=== PATIENT | female | born 1995 | race African-American/Black ===

== ENCOUNTER 2016-09-25 18:12 | Emergency (ER) | payer OTHER ==
--- NOTE | 2016-09-25 18:14 | PDOC ---
Rapid Medical Evaluation Time Seen by Provider: 09/25/16 18:13 Medical Evaluation: 09/25/16 18:14 20 year old female with no past medical history presenting with condom retained per vagina since last night. V/s unremarkable. -Urine -To FT for further evaluation
[2016-09-25 18:17] VITALS: BP 130/83; PULSE 76; TEMP 98; BMI 27.1
--- NOTE | 2016-09-25 18:57 | PDOC ---
History of Present Illness - General Chief Complaint: Foreign Body (FB) Stated Complaint: PAIN Time Seen by Provider: 09/25/16 18:13 History Source: Patient - History of Present Illness Timing/Duration: reports: constant, other (yesterday) Past History - Past Medical History Allergies/Adverse Reactions: Allergies Allergy/AdvReac Type Severity Reaction Status Date / Time No Known Allergies Allergy Verified 09/25/16 18:17 - Psycho/Social/Smoking Cessation Hx Suicidal Ideation: No Smoking History: Never smoked Information on smoking cessation initiated: No Review of Systems - Review of Systems Constitutional: No: Chills, Fever ABD/GI: No: Abdominal cramping : Yes: Other (no foul vaginal odor). No: Dysuria, Discharge *Physical Exam - Vital Signs Last Vital Signs Temp Pulse Resp BP Pulse Ox 98 F 76 18 130/83 100 09/25/16 18:13 09/25/16 18:13 09/25/16 18:13 09/25/16 18:13 09/25/16 18:13 - Physical Exam General Appearance: Yes: Appropriately Dressed. No: Apparent Distress HEENT: positive: Normal Voice Neck: positive: Supple Respiratory/Chest: negative: Respiratory Distress Female Pelvic Exam: positive: other (intact condom seen in vaginal vault and removed w/ alligator forceps, no discharge, no foul odor) Gastrointestinal/Abdominal: positive: Soft. negative: Tender Integumentary: positive: Dry, Warm Neurologic: positive: Fully Oriented, Alert, Normal Mood/Affect Medical Decision Making - Medical Decision Making 09/25/16 18:50 20-year-old female, no significant history, here with retained foreign body to vagina. Patient states after sexual intercourse yesterday, condom got stuck in vaginal vault. Has attempted to remove it with no success. Denies any medical complaints otherwise at this time. Pt well piter and stable. Intact condom removed w/ alligator forceps. Urine preg sent from triage neg. Pt discharged in stable condition. 09/25/16 18:57 *DC/Admit/Observation/Transfer Diagnosis at time of Disposition: Vaginal foreign body Qualifiers: Encounter type: initial encounter Qualified Code(s): T19.2XXA - Foreign body in vulva and vagina, initial encounter - Discharge Dispostion Disposition: HOME Condition at time of disposition: Good - Patient Instructions Additional Instructions: Return for worsening of symptoms
== END 2016-09-25 19:53 | disposition home or self-care (01) ==
LOC: JERFT 18:12
DX: T19.2XXA Foreign body in vulva and vagina, initial encounter (principal); X58.XXXA Exposure to other specified factors, initial encounter; Y93.89 Activity, other specified; Y92.89 Other specified places as the place of occurrence of the external cause
CPT/HCPCS: 84703; 99281-25

== ENCOUNTER 2016-11-24 09:07 | Emergency (ER) | payer OTHER ==
[2016-11-24 09:22] VITALS: TEMP 98.6; BMI 27.2
--- NOTE | 2016-11-24 09:37 | PDOC ---
History of Present Illness - General Chief Complaint: Pain Stated Complaint: ABD PAIN, VOMITING Time Seen by Provider: 11/24/16 09:36 History Source: Patient Exam Limitations: No Limitations - History of Present Illness Initial Comments: CHIEF COMPLAINT: 20 y/o afebrile female with no significant PMH c/o 1 episode of vomiting and abdominal pain this morning. HISTORY OF PRESENT ILLNESS: The patient states she woke up around 5am and vomited 1 time. She states after that she developed abdominal pain in her right pelvic region but that has gone away. Her mom was concerned with the location of the pain and suggested she come to the ER. She admits she has had pain with urination for 2 days. She denies f/c, nausea, diarrhea, constipation , CP, SOB, back pain, hematuria, dysuria. She states she no longer has any abdominal pain and is no longer nauseous. Her LMP was 2 weeks ago. Vital signs on arrival are within normal limits. REVIEW OF SYSTEMS: GENERAL/CONSTITUTIONAL: No fever/chills. No weakness. No weight change. HEAD, EYES, EARS, NOSE AND THROAT: No change in vision. No ear pain or discharge. No sore throat. CARDIOVASCULAR: No chest pain or shortness of breath. RESPIRATORY: No cough, wheezing, or hemoptysis. GASTROINTESTINAL: +abdominal/pelvic pain - resolved. +vomiting - resolved. No nausea, diarrhea, constipation. GENITOURINARY: +dysuria. No frequency or hematuria. MUSCULOSKELETAL: No joint or muscle swelling or pain. No neck or back pain. SKIN: No rash or easy bruising. NEUROLOGIC: No headache, vertigo, loss of consciousness, or loss of sensation. PHYSICAL EXAM: GENERAL: The patient is awake, alert, and fully oriented, in no acute distress. She is very well appearing, ambulatory, in NAD or obvious discomfort. HEAD: Normal with no signs of trauma. ENT: Pupils equal, round and reactive to light, extraocular movements intact, sclera anicteric, conjunctiva clear. Neck supple. LUNGS: Clear to auscultation bilaterally. Normal excursion. No respiratory distress or use of accessory muscles. CV: RRR, S1/S2, no MRG. Cap refill < 2 sec. ABDOMEN: Soft, non-distended, with suprapubic TTP, no hepatomegaly or splenomegaly, no masses. No Mcburney's point TTP. No pelvic pain. No rebound , guarding or rigidity. The patient can jump up and down in the ER without abdominal pain. BACK: No CVA TTP or flank pain b/l. EXTREMITIES: Normal range of motion, no edema. NEUROLOGICAL: Normal speech, normal gait. CN II-XII grossly intact. PSYCH: Normal mood, normal affect. SKIN: Warm, dry, normal turgor, no rashes or lesions noted. Past History - Past Medical History Allergies/Adverse Reactions: Allergies Allergy/AdvReac Type Severity Reaction Status Date / Time No Known Allergies Allergy Verified 11/24/16 09:20 Home Medications: Ambulatory Orders Cephalexin Monohydrate [Keflex -] 500 mg PO BID #14 capsule 11/24/16 - Psycho/Social/Smoking Cessation Hx Anxiety: No Suicidal Ideation: No Smoking History: Never smoked Have you smoked in the past 12 months: No Information on smoking cessation initiated: No Hx Alcohol Use: No Drug/Substance Use Hx: No Substance Use Type: None *Physical Exam - Vital Signs Last Vital Signs Temp Pulse Resp BP Pulse Ox 98.6 F 88 18 121/54 100 11/24/16 09:20 11/24/16 09:20 11/24/16 09:20 11/24/16 09:20 11/24/16 09:20 ED Treatment Course - LABORATORY CBC & Chemistry Diagram: 11/24/16 09:47 11/24/16 09:47 Medical Decision Making - Medical Decision Making A/P: 20 y/o afebrile female with 1 episode of vomiting and right lower abdominal pain this morning, both of which have resolved. Do not suspect appendicitis given presentation of symptoms and negative physical exam. Will r/ o UTI and ovarian cyst. 1. Labs 2. UTI/hcg 3. Ultrasound Ultrasound IMPRESSION: bilateral ovarian cysts. Left is most likely hemorrhagic. Laboratory Tests 11/24/16 09:47 Urine Protein 2+ H Urine Glucose (UA) Negative Urine Ketones Negative Urine Blood 1+ H Urine Nitrite Negative Urine Bilirubin Negative Urine Urobilinogen Negative Ur Leukocyte Esterase 3+ H Urine RBC 44 Urine WBC 376 Ur Epithelial Cells Rare Urine Mucus Rare Urine HCG, Qual Negative The patient is positive for a UTI and left ovarian cyst. Gave her results and diagnosis. She states she is feeling well with no pain or nausea. Will discharge to home with rx for keflex for UTI and instructed her to take Motrin every 6 hours for pain. Instructed her to drink at least 64oz of water daily, follow up with her PCP within 1 week and return to the ER with any worsening or concerning symptoms. The patient verbalizes understanding of all instructions, has no further questions and is awaiting discharge. *DC/Admit/Observation/Transfer Diagnosis at time of Disposition: Ovarian cyst UTI (urinary tract infection) Qualifiers: Urinary tract infection type: acute cystitis Hematuria presence: with hematuria Qualified Code(s): N30.01 - Acute cystitis with hematuria - Discharge Dispostion Disposition: HOME Condition at time of disposition: Good - Prescriptions Prescriptions: Cephalexin Monohydrate [Keflex -] 500 mg PO BID #14 capsule - Referrals Referrals: Mayur Marmolejo MD [Primary Care Provider] - 3 days David Randall MD [Staff Physician] - - Patient Instructions Printed Discharge Instructions: DI for Ovarian Cyst, DI for Urinary Tract Infection (UTI) Additional Instructions: Discharge Instructions: -A prescription was called to your pharmacy for antibiotics to treat your Urinary tract infection; please take for entire 7 days -Drink at least 64oz of water daily -Take 600mg of over the counter motrin with food every 6 hours for pain -Follow up with Dr. Marmolejo and Dr. Randall within 1 week -Return to the ER with any worsening or concerning symptoms
--- NOTE | 2016-11-24 09:37 | PDOC ---
History of Present Illness - General Chief Complaint: Pain Stated Complaint: ABD PAIN, VOMITING Time Seen by Provider: 11/24/16 09:36 Past History - Past Medical History Allergies/Adverse Reactions: Allergies Allergy/AdvReac Type Severity Reaction Status Date / Time No Known Allergies Allergy Verified 11/24/16 09:20 Home Medications: Ambulatory Orders Cephalexin Monohydrate [Keflex -] 500 mg PO BID #14 capsule 11/24/16 - Psycho/Social/Smoking Cessation Hx Anxiety: No Suicidal Ideation: No Smoking History: Never smoked Have you smoked in the past 12 months: No Information on smoking cessation initiated: No Hx Alcohol Use: No Drug/Substance Use Hx: No Substance Use Type: None *Physical Exam - Vital Signs Last Vital Signs Temp Pulse Resp BP Pulse Ox 98.6 F 88 18 121/54 100 11/24/16 09:20 11/24/16 09:20 11/24/16 09:20 11/24/16 09:20 11/24/16 09:20 ED Treatment Course - LABORATORY CBC & Chemistry Diagram: 11/24/16 09:47 11/24/16 09:47 *DC/Admit/Observation/Transfer Diagnosis at time of Disposition: Ovarian cyst UTI (urinary tract infection) Qualifiers: Urinary tract infection type: acute cystitis Hematuria presence: with hematuria Qualified Code(s): N30.01 - Acute cystitis with hematuria - Discharge Dispostion Disposition: HOME Condition at time of disposition: Good - Prescriptions Prescriptions: Cephalexin Monohydrate [Keflex -] 500 mg PO BID #14 capsule - Referrals Referrals: David Randall MD [Staff Physician] - Mayur Marmolejo MD [Primary Care Provider] - 3 days - Patient Instructions Printed Discharge Instructions: DI for Urinary Tract Infection (UTI), DI for Ovarian Cyst Additional Instructions: Discharge Instructions: -A prescription was called to your pharmacy for antibiotics to treat your Urinary tract infection; please take for entire 7 days -Drink at least 64oz of water daily -Take 600mg of over the counter motrin with food every 6 hours for pain -Follow up with Dr. Marmolejo and Dr. Randall within 1 week -Return to the ER with any worsening or concerning symptoms
[2016-11-24 10:09] LABS: BASOPHIL 0.2 % (0-2.0); EOSINOPHIL 0.1 % (0-4.5); MCH 30.2 pg (25.7-33.7); MCHC 33.2 g/dl (32.0-36.0); MEAN PLT VOLUME 8.5 fl (7.5-11.1); NEUTROPHILS 89.5 % (42.8-82.8); PLATELET COUNT 248 K/MM3 (134-434); RDW 12.8 % (11.6-15.6)
[2016-11-24 10:32] LABS: URINE APPEARANCE SLCLOUDY; URINE BILIRUBIN NEGATIVE (NEGATIVE); URINE COLOR LTYELLOW; URINE GLUCOSE (UA) NEGATIVE (NEGATIVE); URINE KETONE NEGATIVE (NEGATIVE); URINE NITRITE NEGATIVE (NEGATIVE); URINE UROBILINOGEN NEGATIVE E.U./dl (0.2-1.0)
[2016-11-24 10:33] LABS: ALBUMIN 3.8 g/dl (3.4-5.0); ANION GAP 11 (8-16); CO2 24 mmol/L (21-32); GLUCOSE,RANDOM 95 mg/dL (74-106); SGOT/AST 29 U/L (15-37); SGPT/ALT 50 U/L (12-78)
[2016-11-24 10:35] LABS: ALK PHOS 51 U/L (45-117); BILIRUBIN,TOTAL 0.4 mg/dL (0.2-1.0); TOT PROT 7.7 g/dl (6.4-8.2)
[2016-11-24 11:14] LABS: URINE BLOOD 1+ (NEGATIVE); URINE LEUK ESTERASE 3+ (NEGATIVE); URINE PROTEIN 2+ (NEGATIVE)
[2016-11-24 11:17] LABS: URINE MUCUS RARE; URINE RBC 44 /hpf (0-3); URINE WBC 376 /hpf (3-5)
[2016-11-24 12:02] VITALS: BP 121/65; PULSE 78
== END 2016-11-24 12:03 | disposition home or self-care (01) ==
LOC: JER 09:07
DX: N83.201 Unspecified ovarian cyst, right side (principal); N83.202 Unspecified ovarian cyst, left side; N30.01 Acute cystitis with hematuria
CPT/HCPCS: 36415; 76830-TC; 80053; 81003; 81015; 84703; 85025; 87086; 99284-25

== ENCOUNTER 2017-11-27 19:21 | Emergency (ER) | payer OTHER ==
[2017-11-27 19:27] VITALS: BP 126/77; PULSE 88; TEMP 99; BMI 26.9
--- NOTE | 2017-11-27 19:28 | PDOC ---
Rapid Medical Evaluation Time Seen by Provider: 11/27/17 19:26 Medical Evaluation: Allergies Allergy/AdvReac Type Severity Reaction Status Date / Time No Known Allergies Allergy Verified 11/24/16 09:20 11/27/17 19:26 I have performed a brief-in person evaluation of this patient. The patient presents with a chief complaint of: "I think I have a urinary infection" Denies burn upon urination but +frequency/hesitancy " I want STD test" Pertinent physical exam findings: Abd soft, NT, ND I have ordered the following:upreg, UA, U std The patient will proceed to the ED for further evaluation. Discharge Disposition - Referrals Referrals: Mayur Marmolejo MD [Primary Care Provider] - - Patient Instructions - Post Discharge Activity
[2017-11-27 20:19] LABS: HCG,QUALITATIVE URINE NEGATIVE
[2017-11-27 20:22] LABS: URINE APPEARANCE SLCLOUDY; URINE BILIRUBIN NEGATIVE (<2.0 mg/dL); URINE BLOOD NEGATIVE (NEGATIVE); URINE COLOR YELLOW; URINE GLUCOSE (UA) NEGATIVE (NEGATIVE); URINE KETONE NEGATIVE (NEGATIVE); URINE LEUK ESTERASE 3+ (NEGATIVE); URINE NITRITE NEGATIVE (NEGATIVE); URINE PROTEIN NEGATIVE (NEGATIVE); URINE UROBILINOGEN NEGATIVE mg/dL (0.2-1.0)
[2017-11-27 20:31] LABS: EPI CELLS MODERATE /HPF (FEW); URINE MUCUS RARE
[2017-11-27] MEDS ORDERED: AZITHROMYCIN 1 GM PACKET PO ONE (20:33)
--- NOTE | 2017-11-27 20:33 | PDOC ---
History of Present Illness - General Chief Complaint: Urinary Problem Stated Complaint: UTI Time Seen by Provider: 11/27/17 19:26 History Source: Patient Exam Limitations: No Limitations - History of Present Illness Travel History: No Initial Comments: 11/27/17 20:27 This is a 21-year-old woman without significant past medical history who presents emergency department had a requesting STD testing as her partners experiencing dysuria, hesitancy, urinary frequency. Patient states she's been having unprotected oral and vaginal sex with one partner for the past 3 months and has not been expressing any symptoms. Patient declines HIV testing at this time. Past History - Past Medical History Allergies/Adverse Reactions: Allergies Allergy/AdvReac Type Severity Reaction Status Date / Time No Known Allergies Allergy Verified 11/27/17 19:28 Home Medications: Ambulatory Orders NK [No Known Home Medication] 11/27/17 - Suicide/Smoking/Psychosocial Hx Smoking History: Current some day smoker Have you smoked in the past 12 months: No Number of Cigarettes Smoked Daily: 4 Information on smoking cessation initiated: No Hx Alcohol Use: No (social) Drug/Substance Use Hx: No Substance Use Type: None Review of Systems - Review of Systems Able to Perform ROS?: Yes Is the patient limited Armenian proficient: No All Other Systems: Reviewed and Negative *Physical Exam - Vital Signs Last Vital Signs Temp Pulse Resp BP Pulse Ox 99.0 F 88 20 126/77 99 11/27/17 19:24 11/27/17 19:24 11/27/17 19:24 11/27/17 19:24 11/27/17 19:24 - Physical Exam General Appearance: Yes: Appropriately Dressed. No: Apparent Distress HEENT: positive: Normal ENT Inspection Neck: positive: Trachea midline Respiratory/Chest: positive: Lungs Clear, Normal Breath Sounds. negative: Respiratory Distress, Accessory Muscle Use Cardiovascular: positive: Regular Rhythm, Regular Rate. negative: Murmur Gastrointestinal/Abdominal: positive: Normal Bowel Sounds, Soft. negative: Tender Musculoskeletal: positive: Normal Inspection. negative: CVA Tenderness Extremity: positive: Normal Inspection Integumentary: positive: Normal Color, Dry, Warm Neurologic: positive: Alert, Normal Response ED Treatment Course - ADDITIONAL ORDERS Additional order review: Laboratory Results 11/27/17 19:43 Urine Color Yellow Urine Appearance Slcloudy Urine pH 5.0 D Ur Specific [place] 1.029 Urine Protein Negative Urine Glucose (UA) Negative Urine Ketones Negative Urine Blood Negative Urine Nitrite Negative Urine Bilirubin Negative Urine Urobilinogen Negative Ur Leukocyte Esterase 3+ H Urine HCG, Qual Negative Medical Decision Making - Medical Decision Making 11/27/17 20:29 A/P: 21-year-old female requesting STD testing status post possible exposure Normal exam UA, urine culture, urine GC, urine Ceftriaxone, Zithromax *DC/Admit/Observation/Transfer Diagnosis at time of Disposition: Concern about STD in female without diagnosis - Discharge Dispostion Disposition: HOME Condition at time of disposition: Stable Decision to Admit order: No - Referrals Referrals: Mayur Marmolejo MD [Primary Care Provider] - - Patient Instructions Additional Instructions: You been treated today with azithromycin 1 g by mouth for treatment of presumed chlamydia You have been treated with Rocephin 250 mg injection for treatment of presumned gonorrhea The syphilis test, gonorrhea and chlamydia testing will not be completed for the next few days. You may call and leave message for return phone call with lab results. Be sure to be clear with your name, birthdate, and phone number Always use condoms with the partners Followup with ENTERTAINMENT USHER or PMD in one week for reevaluation and retesting. - Post Discharge Activity
[2017-11-27] MEDS ORDERED: AZITHROMYCIN 500 MG TABLET ONE (20:39)
== END 2017-11-27 20:53 | disposition home or self-care (01) ==
LOC: JERFT 19:21
DX: Z11.3 Encounter for screening for infections with a predominantly sexual mode of transmission (principal)
CPT/HCPCS: 36415; 81003; 81015; 84703; 87086; 87491; 87591; 99281-25

== ENCOUNTER 2018-08-18 17:52 | Emergency (ER) | payer OTHER ==
[2018-08-18] MEDS ORDERED: AZITHROMYCIN 250 MG TABLET PO ONE (18:00)
--- NOTE | 2018-08-18 18:00 | PDOC ---
Rapid Medical Evaluation Time Seen by Provider: 08/18/18 17:57 Medical Evaluation: Allergies Allergy/AdvReac Type Severity Reaction Status Date / Time No Known Allergies Allergy Verified 02/24/18 22:05 08/18/18 17:58 I have performed a brief in-person evaluation of this patient. The patient presents with a chief complaint of:STD check Pertinent physical exam findings:NAD I have ordered the following:GC, UA, U PReg, rocephin, zithromax The patient will proceed to the ED for further evaluation. Discharge Disposition - Diagnosis STD exposure - Referrals - Patient Instructions - Post Discharge Activity
[2018-08-18 18:03] VITALS: BP 113/71; PULSE 85; TEMP 98.1; BMI 25.8
[2018-08-18 18:57] LABS: HCG,QUALITATIVE URINE Negative
[2018-08-18 19:02] LABS: URINE APPEARANCE CLEAR; URINE BILIRUBIN NEGATIVE (<2.0 mg/dL); URINE COLOR STRAW; URINE GLUCOSE (UA) NEGATIVE (NEGATIVE); URINE KETONE NEGATIVE (NEGATIVE); URINE LEUK ESTERASE 2+ (NEGATIVE); URINE NITRITE NEGATIVE (NEGATIVE); URINE PROTEIN NEGATIVE (NEGATIVE); URINE UROBILINOGEN NEGATIVE mg/dL (0.2-1.0)
[2018-08-18 19:30] LABS: EPI CELLS RARE /HPF (FEW)
[2018-08-18] MEDS ORDERED: AZITHROMYCIN 250 MG TABLET ONE (20:12)
--- NOTE | 2018-08-18 20:56 | PDOC ---
History of Present Illness - General Chief Complaint: Vaginal Sxs Stated Complaint: pt wants STD testing Time Seen by Provider: 08/18/18 17:57 History Source: Patient - History of Present Illness Initial Comments: 08/18/18 20:57 22 year old female unsure of exposure to gonorrhea here to be treated. as per patient patient current partner was exposed to gonorrhea by his other partner. denies vaginal symptoms, urinary symptomsa, no fever/ chills. Past History - Past Medical History Allergies/Adverse Reactions: Allergies Allergy/AdvReac Type Severity Reaction Status Date / Time No Known Allergies Allergy Verified 08/18/18 18:03 Home Medications: Ambulatory Orders NK [No Known Home Medication] 11/27/17 COPD: No - Suicide/Smoking/Psychosocial Hx Smoking History: Never smoked Have you smoked in the past 12 months: No Number of Cigarettes Smoked Daily: 4 Information on smoking cessation initiated: No Hx Alcohol Use: No Drug/Substance Use Hx: No Substance Use Type: None Review of Systems - Review of Systems Able to Perform ROS?: Yes Is the patient limited Georgian proficient: No Constitutional: No: Symptoms Reported, See HPI, Chills, Diaphoresis, Fever, Loss of Appetite, Malaise, Night Sweats, Weakness, Weight Stable, Unintentional Wgt. Loss, Unexplained wgt Loss, Other HEENTM: No: Symptoms Reported, See HPI, Eye Pain, Blurred Vision, Tearing, Recent change in vision, Double Vision, Cataracts, Ear Pain, Ocular Prothesis, Ear Discharge, Nose Pain, Nose Congestion, Tinnitus, Nose Bleeding, Hearing Loss , Throat Pain, Throat Swelling, Mouth Pain, Dental Problems, Difficulty Swallowing, Mouth Swelling, Other Respiratory: No: Symptoms reported, See HPI, Cough, Orthopnea, Shortness of Breath, SOB with Exertion, SOB at Rest, Stridor, Wheezing, Productive cough, Hemoptysis, Other Cardiac (ROS): No: Symptoms Reported, See HPI, Chest Pain, Edema, Irregular Heart Rate, Lightheadedness, Palpitations, Syncope, Chest Tightness, Other ABD/GI: No: Symptoms Reported, See HPI, Abdominal Distended, Abd. Pain w/ defecation, Blood Streaked Bowels, Constipated, Diarrhea, Difficulty Swallowing , Nausea, Poor Appetite, Poor Fluid Intake, Rectal Bleeding, Vomiting, Indigestion, Abdominal cramping, Tarry Stools, Other *Physical Exam - Vital Signs Last Vital Signs Temp Pulse Resp BP Pulse Ox 98.1 F 85 17 113/71 99 08/18/18 18:02 08/18/18 18:02 08/18/18 18:02 08/18/18 18:02 08/18/18 18:02 - Physical Exam General Appearance: Yes: Appropriately Dressed Moderate Sedation - Procedure Monitoring Vital Signs: Procedure Monitoring Vital Signs Temperature 98.1 F 08/18/18 18:02 Pulse Rate 85 08/18/18 18:02 Respiratory Rate 17 08/18/18 18:02 Blood Pressure 113/71 08/18/18 18:02 O2 Sat by Pulse Oximetry (%) 99 08/18/18 18:02 ED Treatment Course - ADDITIONAL ORDERS Additional order review: Laboratory Results 08/18/18 18:43 Urine Color Straw Urine Appearance Clear Urine pH 8.0 D Ur Specific [place] 1.009 L Urine Protein Negative Urine Glucose (UA) Negative Urine Ketones Negative Urine Blood Negative Urine Nitrite Negative Urine Bilirubin Negative Urine Urobilinogen Negative Ur Leukocyte Esterase 2+ H Urine WBC (Auto) 5 Urine RBC (Auto) None Ur Epithelial Cells Rare Urine HCG, Qual Negative - Medications Given in the ED: ED Medications Discontinued Medications Generic Name Dose Route Start Last Admin Trade Name Felibertoq PRN Reason Stop Dose Admin Azithromycin 1,000 mg 08/18/18 18:00 08/18/18 20:30 Zithromax - PO 08/18/18 18:01 1,000 mg ONCE ONE Administration Ceftriaxone Sodium 250 mg 08/18/18 18:00 08/18/18 20:29 Rocephin - IM 08/18/18 18:01 250 mg ONCE ONE Administration *DC/Admit/Observation/Transfer Diagnosis at time of Disposition: STD exposure - Discharge Dispostion Disposition: HOME - Referrals Referrals: Mayur Marmolejo MD [Primary Care Provider] - - Patient Instructions Printed Discharge Instructions: Facts About Sexually Transmitted Infections Additional Instructions: no sex for 1 week follow up with primary doctor / production control technologist as soon as possible. Additional Instructions: * Please call your personal physician to report your Emergency Department visit and to report your progress, if any. * If there is no improvement in symptoms in 2 days call your physician. * Return to the Emergency Department for any worsening symptoms. - Post Discharge Activity
== END 2018-08-18 22:03 | disposition home or self-care (01) ==
LOC: JERFT 17:52 → JER 17:52
DX: Z11.3 Encounter for screening for infections with a predominantly sexual mode of transmission (principal)
CPT/HCPCS: 36415; 81003; 81015; 84703; 87077; 87086; 87491; 87591; 99281-25

== ENCOUNTER 2020-04-02 19:49 | Emergency (ER) | payer OTHER ==
[2020-04-02 20:01] VITALS: BP 143/94; PULSE 110; TEMP 98.2; BMI 19.5
--- NOTE | 2020-04-02 20:02 | PDOC ---
Rapid Medical Evaluation Time Seen by Provider: 04/02/20 19:58 Medical Evaluation: Allergies Allergy/AdvReac Type Severity Reaction Status Date / Time No Known Allergies Allergy Verified 08/18/18 18:03 04/02/20 19:58 Pt presents with her mother for not "acting like herself". Reports that she smoked weed on Thursday and has not been the same since. States she is mumbling to herself and not making sense. Exam: (+) a/v hallucinations Orders: labs, utox, preg, ekg Pt to proceed to the ER for further evaluation Discharge Disposition - Diagnosis Hallucination - Referrals - Patient Instructions - Post Discharge Activity
[2020-04-02 21:00] LABS: URINE APPEARANCE CLEAR; URINE BILIRUBIN NEGATIVE (NEGATIVE); URINE COLOR YELLOW; URINE GLUCOSE (UA) NEGATIVE (NEGATIVE); URINE KETONE NEGATIVE (NEGATIVE); URINE LEUK ESTERASE NEGATIVE (NEGATIVE); URINE NITRITE NEGATIVE (NEGATIVE); URINE PROTEIN NEGATIVE (NEGATIVE); URINE UROBILINOGEN 0.2 mg/dL (0.2-1.0)
[2020-04-02 21:03] LABS: HCG,QUALITATIVE URINE Negative
--- NOTE | 2020-04-02 21:08 | PDOC ---
History of Present Illness - General Chief Complaint: Psychiatric Stated Complaint: SUBSTANCE ABUSE Time Seen by Provider: 04/02/20 19:58 Past History - Medical History Allergies/Adverse Reactions: Allergies Allergy/AdvReac Type Severity Reaction Status Date / Time No Known Allergies Allergy Verified 08/18/18 18:03 Home Medications: Ambulatory Orders NK [No Known Home Medication] 11/27/17 COPD: No - Reproductive History Is Patient Now?: No - Psycho-Social/Smoking History Smoking History: Never smoked Have you smoked in the past 12 months: No Number of Cigarettes Smoked Daily: 4 - Substance Abuse Hx (Audit-C & DAST Scrn) How often the patient has a drink containing alcohol: Never Score: In Men: 4 or > Positive; In Women: 3 or > Positive: 0 Screen Result (Pos requires Nsg. Audit-10AR): Negative In the last yr the pt used illegal drug/Rx for NonMed reason: Yes Score: Yes response is considered Positive: 1 Screen Result (Positive result requires Nsg. DAST-10): Positive *Physical Exam - Vital Signs Last Vital Signs Temp Pulse Resp BP Pulse Ox 98.2 F 110 H 18 143/94 96 04/02/20 19:57 04/02/20 19:57 04/02/20 19:57 04/02/20 19:57 04/02/20 19:57 ED Treatment Course - LABORATORY CBC & Chemistry Diagram: 04/02/20 20:37 04/02/20 20:37 - ADDITIONAL ORDERS Additional order review: Laboratory Results 04/02/20 20:13 Urine Color Yellow Urine Appearance Clear Urine pH 6.0 D Ur Specific [place] 1.005 L Urine Protein Negative Urine Glucose (UA) Negative Urine Ketones Negative Urine Blood Negative Urine Nitrite Negative Urine Bilirubin Negative Urine Urobilinogen 0.2 Ur Leukocyte Esterase Negative Urine HCG, Qual Negative Medical Decision Making - Medical Decision Making 04/02/20 21:08 HPI: 24yo F no past medical or psychiatric history presents from home with mother for psychosis since this AM. Pt has nonsensical and flamboyant speech. History per mother. Mother states pt has lived with boyfriend for 1.5 years. Boyfriend called mother this AM because pt and boyfriend used MJ on Thursday, and since then pt has only slept 2.5 hours, and today pt started acting bizarrely and appearing like she is hallucinating. Mother has been with pt since 0630 today and has not let her out of her sight; states pt has had no chance to take drugs or alcohol today. States pt will act normally for 20-25 minutes max then return to speaking to herself and pointing at things and not making sense. Pt states she feels "great" and denies any complaints. Mother denies hx drug use or psychiatric issues. Mother states both she and her mother had similar episodes once when they were approx 29yo then never again and no diagnosis was ever given. Pt denies SI/HI/AVH. ROS: Unable to assess 2/2 AMS. PE: Gen: Alert, NAD, comfortable-appearing, speaking to self and pointing in front of her and making odd hand movements/gestures HEENT: PERRL, EOMI, MMM, NCAT. No conjunctival pallor. Sclera are non-icteric. Oropharynx is clear. CV: Regular rate and rhythm. No murmurs, rubs, or gallops. PULM: No resp distress. CTAB, no wheezes, rales, or rhonchi. ABD: soft, NT/ND, no rebound tenderness or guarding, no CVA tenderness. BACK: No TTP of c/t/l-spine. No step-offs or deformities. MSK: No bony deformities. 2+ pulses in all extremities. NEURO: AAOx3. PERRL. No gross CN deficits. Strength and sensation grossly intact throughout. Normal gait. EXTREMITIES: No cyanosis. No clubbing. No edema. No calf tenderness. PSYCH: Elated mood. Flight of ideas, nonsensical speech, grandiosity. Appears to be speaking to no one. SKIN: Warm and dry. Normal capillary refill. No rashes. No jaundice. MDM: 24yo F no past medical or psychiatric history presents from home with mother for bizarre behaviour and nonsensical speech since this AM. Tachycardic, otherwise hemodynamically stable, afebrile. Ddx: stress-induced reaction, psychosis, schizophrenia, mood disorder, malingering, intoxication, infection, metabolic derangement, anemia -EKG -CBC,CMP,UA,UTox -IVF -Ativan -Psych consult: discussed case, will see in AM -Dispo: pending workup and reassessment Labs reviewed. +THC. No concerning findings. -Replete K EKG reviewed: normal sinus tachycardia, 105bpm, normal axis, normal intervals, no TWIs, no ST elevations or depressions Signed out pt to night team and Dr Guillen. Discharge - Discharge Information Problems reviewed: Yes Clinical Impression/Diagnosis: Hallucination, Marijuana abuse - Follow up/Referral Referrals: Dannie Barakat [Primary Care Provider] - - Patient Discharge Instructions - Post Discharge Activity Work/Back to School Note: My Personal Safety Plan
[2020-04-02 21:17] LABS: COCAINE, UR NEGATIVE ng/ml (CUTOFF=300); OPIATES, URI NEGATIVE ng/ml (CUTOFF=300); PHENCYCLIDINE,URINE NEGATIVE ng/ml (CUTOFF=25); URINE BARBITURATES NEGATIVE ng/ml (CUTOFF=200); URINE BENZODIAZEPINES NEGATIVE ng/ml (CUTOFF=200)
[2020-04-02 21:18] LABS: BASO % 0.3 % (0-2.0); EOS % 0.1 % (0-4.5); HEMATOCRIT 41.8 % (32.4-45.2); HEMOGLOBIN 14.1 GM/dL (10.7-15.3); LYMPH % 19.4 % (8-40); MCH 30.8 pg (25.7-33.7); MCHC 33.8 g/dl (32.0-36.0); MEAN CELL VOLUME 91.1 fl (80-96); MEAN PLT VOLUME 8.5 fl (7.5-11.1); MONO % 11.7 % (3.8-10.2); NEUT % 68.5 % (42.8-82.8); PLATELET COUNT 242 K/MM3 (134-434); RBC 4.59 M/mm3 (3.60-5.2); RDW 12.6 % (11.6-15.6); WHITE BLOOD COUNT 5.8 K/mm3 (4.0-10.0)
[2020-04-02 21:21] LABS: METHADONE, UR NEGATIVE ng/ml (CUTOFF=300); URINE AMPHETAMINES NEGATIVE ng/ml (CUTOFF=500)
[2020-04-02 21:24] LABS: INR 1.21 (0.83-1.09); PROTHROMBIN TIME (PATIENT) 14.3 SEC (9.7-13.0)
[2020-04-02] MEDS ORDERED: SODIUM CHLORIDE 0.9% 500 ML INFUS.BAG IV ONE (21:31)
[2020-04-02 21:44] LABS: ALBUMIN 4.1 g/dl (3.4-5.0); BILIRUBIN,TOTAL 0.5 mg/dL (0.2-1); BLOOD UREA NITROGEN 5.5 mg/dL (7-18); POTASSIUM 3.1 mmol/L (3.5-5.1); TOT PROT 7.9 g/dl (6.4-8.2)
[2020-04-02] MEDS ORDERED: POTASSIUM CHLORIDE ORAL LIQUID 20 MEQ/15 ML PO ONE (21:45)
--- NOTE | 2020-04-02 21:46 | PDOC ---
Documentation entered by Fernanda Davies SCRIBE, acting as scribe for Jolynn Gmaa MD. Jolynn Gama MD: This documentation has been prepared by the scribe, Fernanda Davies SCRIBE, under my direction and personally reviewed by me in its entirety. I confirm that the documentation accurately reflects all work, treatment, procedures, and medical decision making performed by me. Attending Attestation - Resident Resident Name: Nay Turner - ED Attending Attestation I have performed the following: I have examined & evaluated the patient, The case was reviewed & discussed with the resident, I agree w/resident's findings & plan, Exceptions are as noted - HPI HPI: 04/02/20 20:27 Patient is a 24 year old female with no significant past medical history who presents to the ED with altered mental status x3 days. Patient stated she smoked something 3 days ago and "has not been the same since". Patient denies: Allergies: NKDA - Physicial Exam PE: 04/02/20 20:59 wnwd 24 yo female has been having unusual behavior since smoking weed on Thursday. 04/02/20 21:20 04/02/20 21:23 head ncat eyes darrell eomi neck supple lungs cta b/l cvs [id number] abdomen nontender skin warm and dry neuro alert ,no ataxia,motor strength 5/5 b/l psych she has fanciful speech,cheerful affect , flight of ideas, states she "feels loved" 04/02/20 21:40 - Medical Decision Making 04/03/20 00:06 Pt denies using any drugs/psychogenic substances since Thursday but her behavior has not improved for past 3 days Spoke with Psych Po Walsh [employer] and she will see this patent in the morning Concern for unknown ingestions,malingering,new psychoses Discharge - Discharge Information Problems reviewed: Yes Clinical Impression/Diagnosis: Hallucination, Marijuana abuse Altered mental status Qualifiers: Altered mental status type: unspecified Qualified Code(s): R41.82 - Altered mental status, unspecified Condition: Improved Disposition: HOME - Follow up/Referral Referrals: Dannie Barakat [Primary Care Provider] - - Patient Discharge Instructions Patient Printed Discharge Instructions: DI for Psychosis Additional Instructions: You were seen in the ER for bizarre behavior. This is likely due to the drug use. Keep yourself well hydrated. I recommend refraining from street drug use. Come back to the ER if you have thoughts of hurting yourself or others, are seeing and/or hearing things, you have worsening headaches, you pass out, have chest pain, have fever or if any new or concerning symptom develops. Thank you - Post Discharge Activity Work/Back to School Note: My Personal Safety Plan
[2020-04-02] MEDS ORDERED: LORazepam 2 MG/ML SDV VIAL ONE (21:53)
[2020-04-02] MEDS ORDERED: POTASSIUM CHLORIDE ORAL LIQUID 20 MEQ/15 ML ONE (21:53)
--- NOTE | 2020-04-02 23:26 | PDOC ---
*Physical Exam - Vital Signs Last Vital Signs Temp Pulse Resp BP Pulse Ox 98.2 F 110 H 18 143/94 96 04/02/20 19:57 04/02/20 19:57 04/02/20 19:57 04/02/20 19:57 04/02/20 19:57 ED Treatment Course - LABORATORY CBC & Chemistry Diagram: 04/02/20 20:37 04/02/20 20:37 - ADDITIONAL ORDERS Additional order review: Laboratory Results 04/02/20 04/02/20 04/02/20 20:37 20:37 20:13 PT with INR 14.30 H INR 1.21 H Sodium 135 L Potassium 3.1 L Chloride 103 Carbon Dioxide 22 Anion Gap 10 BUN 5.5 L Creatinine 1.0 Est GFR (CKD-EPI)AfAm 90.68 Est GFR (CKD-EPI)NonAf 78.24 Random Glucose 116 H Calcium 9.0 Total Bilirubin 0.5 AST 15 ALT 13 Alkaline Phosphatase 33 L Total Protein 7.9 Albumin 4.1 Urine Color Urine Appearance Urine pH Ur Specific [place] Urine Protein Urine Glucose (UA) Urine Ketones Urine Blood Urine Nitrite Urine Bilirubin Urine Urobilinogen Ur Leukocyte Esterase Urine HCG, Qual Opiates Screen Negative Methadone Screen Negative Barbiturate Screen Negative Phencyclidine Screen Negative Ur Amphetamines Screen Negative MDMA (Ecstasy) Screen Negative Benzodiazepines Screen Negative Cocaine Screen Negative U Marijuana (THC) Screen Positive A* 04/02/20 20:13 PT with INR INR Sodium Potassium Chloride Carbon Dioxide Anion Gap BUN Creatinine Est GFR (CKD-EPI)AfAm Est GFR (CKD-EPI)NonAf Random Glucose Calcium Total Bilirubin AST ALT Alkaline Phosphatase Total Protein Albumin Urine Color Yellow Urine Appearance Clear Urine pH 6.0 D Ur Specific [place] 1.005 L Urine Protein Negative Urine Glucose (UA) Negative Urine Ketones Negative Urine Blood Negative Urine Nitrite Negative Urine Bilirubin Negative Urine Urobilinogen 0.2 Ur Leukocyte Esterase Negative Urine HCG, Qual Negative Opiates Screen Methadone Screen Barbiturate Screen Phencyclidine Screen Ur Amphetamines Screen MDMA (Ecstasy) Screen Benzodiazepines Screen Cocaine Screen U Marijuana (THC) Screen 04/02/20 20:37 RBC 4.59 MCV 91.1 MCHC 33.8 RDW 12.6 MPV 8.5 Neutrophils % 68.5 D Lymphocytes % 19.4 D Monocytes % 11.7 H D Eosinophils % 0.1 Basophils % 0.3 - Medications Given in the ED: ED Medications Discontinued Medications Generic Name Dose Route Start Last Admin Trade Name Heidi PRN Reason Stop Dose Admin Lorazepam 0.5 mg 04/02/20 21:45 04/02/20 21:59 Ativan Injection - IVPUSH 04/02/20 21:46 0.5 mg ONCE ONE Administration Potassium Chloride 40 meq 04/02/20 21:45 04/02/20 21:59 Potassium Chloride Oral Liquid PO 04/02/20 21:46 40 meq ONCE ONE Administration Sodium Chloride 1,000 ml 04/02/20 21:31 04/02/20 21:44 Normal Saline - IV 04/02/20 21:32 1,000 ml ONCE ONE Administration Medical Decision Making - Medical Decision Making 04/02/20 23:24 Signed out to me by Dr. Turner. Patient formerly healthy. Acting unusually with hallucinations and nonsensical speech patterns, concern for intoxication vs. psychiatric issue. Psych Jose Alberto Walsh contacted, will evaluate in morning. Patient is resting comfortably in bed in NAD. Will continue to monitor overnight until patient can be evaluated. 04/03/20 01:37 Patient agitated and stormed over to nursing station. Patient received 0.5 Ativan and Benadryl. Ordered 2mg more Ativan for agitation. Patient calming down in room. Will continue to monitor until psychiatric evaluation in the AM. 04/03/20 01:57 Still agitated, PRN haldol ordered. 04/03/20 05:05 Resting comfortably in bed in NAD. Father in the room, patient not agitated. 04/03/20 06:59 Signing out to day team. Plan to f/u AMS and have Po Walsh come to see for Psych eval. Discharge - Discharge Information Problems reviewed: Yes Clinical Impression/Diagnosis: Hallucination, Marijuana abuse Altered mental status Qualifiers: Altered mental status type: unspecified Qualified Code(s): R41.82 - Altered mental status, unspecified Condition: Stable - Follow up/Referral Referrals: Dannie Barakat [Primary Care Provider] - - Patient Discharge Instructions - Post Discharge Activity Work/Back to School Note: My Personal Safety Plan
[2020-04-03] MEDS ORDERED: LORazepam 2 MG/ML SDV VIAL ONE (01:31)
[2020-04-03] MEDS ORDERED: HALOPERIDOL LACTATE 5 MG/ML IV PRN (01:56)
[2020-04-03] MEDS ORDERED: HALOPERIDOL LACTATE 5 MG/ML ONE (01:59)
--- NOTE | 2020-04-03 07:25 | PDOC ---
*Physical Exam - Vital Signs Last Vital Signs Temp Pulse Resp BP Pulse Ox 98.2 F 110 H 18 143/94 96 04/02/20 19:57 04/02/20 19:57 04/02/20 19:57 04/02/20 19:57 04/02/20 19:57 ED Treatment Course - LABORATORY CBC & Chemistry Diagram: 04/02/20 20:37 04/02/20 20:37 - ADDITIONAL ORDERS Additional order review: Laboratory Results 04/02/20 04/02/20 04/02/20 20:37 20:37 20:13 PT with INR 14.30 H INR 1.21 H Sodium 135 L Potassium 3.1 L Chloride 103 Carbon Dioxide 22 Anion Gap 10 BUN 5.5 L Creatinine 1.0 Est GFR (CKD-EPI)AfAm 90.68 Est GFR (CKD-EPI)NonAf 78.24 Random Glucose 116 H Calcium 9.0 Total Bilirubin 0.5 AST 15 ALT 13 Alkaline Phosphatase 33 L Total Protein 7.9 Albumin 4.1 Urine Color Urine Appearance Urine pH Ur Specific [place] Urine Protein Urine Glucose (UA) Urine Ketones Urine Blood Urine Nitrite Urine Bilirubin Urine Urobilinogen Ur Leukocyte Esterase Urine HCG, Qual Opiates Screen Negative Methadone Screen Negative Barbiturate Screen Negative Phencyclidine Screen Negative Ur Amphetamines Screen Negative MDMA (Ecstasy) Screen Negative Benzodiazepines Screen Negative Cocaine Screen Negative U Marijuana (THC) Screen Positive A* 04/02/20 20:13 PT with INR INR Sodium Potassium Chloride Carbon Dioxide Anion Gap BUN Creatinine Est GFR (CKD-EPI)AfAm Est GFR (CKD-EPI)NonAf Random Glucose Calcium Total Bilirubin AST ALT Alkaline Phosphatase Total Protein Albumin Urine Color Yellow Urine Appearance Clear Urine pH 6.0 D Ur Specific [place] 1.005 L Urine Protein Negative Urine Glucose (UA) Negative Urine Ketones Negative Urine Blood Negative Urine Nitrite Negative Urine Bilirubin Negative Urine Urobilinogen 0.2 Ur Leukocyte Esterase Negative Urine HCG, Qual Negative Opiates Screen Methadone Screen Barbiturate Screen Phencyclidine Screen Ur Amphetamines Screen MDMA (Ecstasy) Screen Benzodiazepines Screen Cocaine Screen U Marijuana (THC) Screen 04/02/20 20:37 RBC 4.59 MCV 91.1 MCHC 33.8 RDW 12.6 MPV 8.5 Neutrophils % 68.5 D Lymphocytes % 19.4 D Monocytes % 11.7 H D Eosinophils % 0.1 Basophils % 0.3 - Medications Given in the ED: ED Medications Discontinued Medications Generic Name Dose Route Start Last Admin Trade Name Heidi PRN Reason Stop Dose Admin Diphenhydramine HCl 25 mg 04/02/20 23:49 04/03/20 00:08 Benadryl Injection - IVPB 04/02/20 23:50 25 mg ONCE ONE Administration Lorazepam 0.5 mg 04/02/20 21:45 04/02/20 21:59 Ativan Injection - IVPUSH 04/02/20 21:46 0.5 mg ONCE ONE Administration Lorazepam 1 mg 04/03/20 01:29 04/03/20 01:56 Ativan Injection - IVPUSH 04/03/20 01:30 Not Given ONCE ONE Lorazepam 2 mg 04/03/20 01:31 04/03/20 01:42 Ativan Injection - IVPUSH 04/03/20 01:32 2 mg ONCE ONE Administration Potassium Chloride 40 meq 04/02/20 21:45 04/02/20 21:59 Potassium Chloride Oral Liquid PO 04/02/20 21:46 40 meq ONCE ONE Administration Sodium Chloride 1,000 ml 04/02/20 21:31 04/02/20 21:44 Normal Saline - IV 04/02/20 21:32 1,000 ml ONCE ONE Administration Medical Decision Making - Medical Decision Making 04/03/20 07:25 signed out by night team; 24y F with no significant pmh presenting to the ER for bizarre behavior. vitals wnl. utox positive for marijuana. father at bedside. Pending psych evaluation pt denying si/hi, ah/vh. no complaints at this time. per father, pt is at baseline. 04/03/20 08:00 pt seen and cleared by psych: Po Walsh. Likely drug induced psychosis. Currently pt is denying AH/VH. No SI/HI. Per family at bedside, pt is more at baseline. Feel safe for pt to go home. Will monitor patient. Return precautions provided. 04/03/20 18:07 Discharge - Discharge Information Problems reviewed: Yes Clinical Impression/Diagnosis: Hallucination, Marijuana abuse Altered mental status Qualifiers: Altered mental status type: unspecified Qualified Code(s): R41.82 - Altered mental status, unspecified Condition: Improved Disposition: HOME - Admission No - Follow up/Referral Referrals: Dannie Barakat [Primary Care Provider] - - Patient Discharge Instructions Patient Printed Discharge Instructions: DI for Psychosis Additional Instructions: You were seen in the ER for bizarre behavior. This is likely due to the drug use. Keep yourself well hydrated. I recommend refraining from street drug use. Come back to the ER if you have thoughts of hurting yourself or others, are seeing and/or hearing things, you have worsening headaches, you pass out, have chest pain, have fever or if any new or concerning symptom develops. Thank you - Post Discharge Activity Work/Back to School Note: My Personal Safety Plan
--- NOTE | 2020-04-03 08:12 | PN ---
Progress Note (short form) - Note Progress Note: Events of last PM noted Medical chart reviewed RN input obtained. Patient is a 24 year old female with no known psychiatric history and nopast med hx who smoked MJ on Thursday. According to mother, patients became restlessness and appeared like she was hallucinating. Patient admitted to smoking MJ and this is not the first time This am she is awake alert and fully oriented, Parents at bedside No evidence of psychosis reported or elicited. No SI/HI Acting appropriately. Cleared to be discharged Dx Most likle MJ induced psychosis Rec Adv. substance abuse treatment.
--- NOTE | 2020-04-03 10:16 | EKG ---
Test Reason : Blood Pressure : / mmHG Vent. Rate : 105 BPM Atrial Rate : 105 BPM P-R Int : 144 ms QRS Dur : 096 ms QT Int : 328 ms P-R-T Axes : 074 068 059 degrees QTc Int : 433 ms SINUS TACHYCARDIA POSSIBLE LEFT ATRIAL ENLARGEMENT BORDERLINE ECG NO PREVIOUS ECGS AVAILABLE Confirmed by MD Ale, Alexander ([id number]) on 04/03/2020 10:16:33 AM Referred By: Confirmed By:Alexander Aguilera MD
== END 2020-04-03 08:24 | disposition home or self-care (01) ==
LOC: JER 19:49
PROC: 3E033NZ Introduction of Analgesics, Hypnotics, Sedatives into Peripheral Vein, Percutaneous Approach (ICD-10-PCS; principal; 2020-04-02)
DX: R44.3 Hallucinations, unspecified (principal); F12.10 Cannabis abuse, uncomplicated; R41.82 Altered mental status, unspecified
CPT/HCPCS: 36415; 80053; 80307; 81003; 84703; 85025; 85610; 87086; 93005; 93010; 99285-25

== ENCOUNTER 2021-09-30 08:34 | Emergency (ER) | payer SELFPAY ==
[2021-09-30 08:48] VITALS: BP 107/77; PULSE 73; TEMP 97.8; BMI 27.1
== END 2021-09-30 09:21 | disposition home or self-care (01) ==
LOC: JER 08:34 → JERFT 08:34
DX: S60.445A External constriction of left ring finger, initial encounter (principal); W49.04XA Ring or other jewelry causing external constriction, initial encounter
CPT/HCPCS: 99281-25

== ENCOUNTER 2024-01-08 22:14 | Emergency (ER) | payer BC ==
[2024-01-08 22:21] VITALS: BP 113/63; PULSE 81; RESP 18; TEMP 98.2; BMI 27.8
[2024-01-09] MEDS ORDERED: DOXYCYCLINE HYCLATE 100 MG CAPSULE PO ONE (00:31)
[2024-01-09] MEDS ORDERED: cefTRIAXone SODIUM 1 GM VIAL ONE (00:34)
[2024-01-09] MEDS ORDERED: LIDOCAINE HCL/PF 1% SDV 5ML VIAL ONE (00:35)
[2024-01-09] MEDS: DOXYCYCLINE HYCLATE 100 MG CAPSULE PO ONE (00:44)
[2024-01-09 01:19] LABS: HIV INTERPRETATION NEGATIVE (NEGATIVE)
[2024-01-09 02:25] LABS: PH,URINE 6.5 (5.0-8.0); URINE APPEARANCE CLEAR; URINE BILIRUBIN NEGATIVE (NEGATIVE); URINE COLOR YELLOW; URINE GLUCOSE (UA) NEGATIVE (NEGATIVE); URINE KETONE TRACE (NEGATIVE); URINE LEUK ESTERASE NEGATIVE (NEGATIVE); URINE NITRITE NEGATIVE (NEGATIVE); URINE PROTEIN NEGATIVE (NEGATIVE); URINE UROBILINOGEN 0.2 mg/dL (0.2-1.0)
[2024-01-09 02:31] LABS: HCG,QUALITATIVE URINE Negative
== END 2024-01-09 00:40 | disposition home or self-care (01) ==
LOC: JERFT 22:14 → JER 22:14
DX: N72 Inflammatory disease of cervix uteri (principal); Z20.2 Contact with and (suspected) exposure to infections with a predominantly sexual mode of transmission
CPT/HCPCS: 36415; 81003; 84703; 87086; 87110; 87389; 87491; 87591; 87661; 99284-25